=== PATIENT | female | born 1945 | race Caucasian/White ===

== ENCOUNTER 2024-07-26 19:16 | Emergency (ER) | payer MEDICARE, OTHER, SELFPAY ==
[2024-07-26] VITALS (18 sets, daily range): BP systolic 103–152; BP diastolic 61–80
--- NOTE | 2024-07-26 19:46 | ED.GENMED ---
History of Present Illness
General
Chief Complaint: Fall
Source: patient and spouse
Exam Limitations: none
Time Seen by Provider: 07/26/24 19:33
History of Present Illness
History of Present Illness:
Patient slipped and fell earlier today outside of a store. Hit her left posterior ribs against her car then fell to the ground. Mostly complaining of left posterior rib pain. Took ibuprofen 6 PM. Pain is progressed throughout the day. Incident
occurred this morning. Denies head injury denies thinners. Denies nausea or vomiting. Has an abrasion to her left ankle although no ankle pain or difficulty ambulating
Past History
Past History
ED Past Medical History: HTN and Other (Arthritis)
ED Past Surgical History: Gynecological, Orthopedic and Other (Cataracts)
Social History
Tobacco: Non-smoker
Personal:
Living: with family
Review of Systems
Review of Systems
All Other Systems: Not applicable
Respiratory: Reports no symptoms
Cardiac: Denies chest pain or syncope
ABD/GI: Reports no symptoms
Phy Exam
Physical Exam
Physical Exam:
TRAUMA EXAM:
VITAL SIGNS: Vital signs reviewed, cooperative
DISTRESS: No active disease
EYES: Pupils reactive, no orbital trauma
NOSE: No deformity or epistaxis
FACE AND SCALP: No scalp or facial trauma, external canals no blood
NECK: Supple mild left paracervical tenderness
BACK: Pelvis stable and nontender. No spinal tenderness. Linear ecchymosis across the left posterior ribs with tenderness. No crepitus. No open wound.
RESPIRATORY: No distress, breath sounds normal, no anterior chest wall tenderness
CARDIAC: No murmur, pulses equal and strong
ABDOMEN: Soft mild left upper quadrant tenderness. No rebound or guarding no mass or hernia
SKIN: Abrasion to the left ankle
EXTREMITIES: Nontender. No bony tenderness or joint tenderness. Good range of motion of all extremities.
NEUROLOGICAL: Alert, oriented, no motor deficits
PSYCH: Mood affect normal
Course
Orders/Labs/Results
Orders:
Orders
07/26/24 19:42
Cardiac Monitoring- Treatment ONCE
07/26/24 19:43
CT Cervical Spine W/o Iv Contr Urgent
Comment:
Reason For Exam: trauma neck pain
CT Chest/abd/pel W Iv Cont Urgent
Reason For Exam: trauma. lrft post rins/luq
07/26/24 19:44
0.9% Sodium Chloride 500 ml [Nss] 500 ml IV BOLUS
Acetaminophen 1000MG/100Ml [Ofirmev] 1,000 mg in 100 ml IV ONCE
Acetaminophen IV Indication:: ED Narcotic Naive Pt-ONCE
07/26/24 19:51
Tetanus/Diphth/Acelpertussis [Adacel] 0.5 ml IM .ONCE ONE
07/26/24 19:59
Complete Blood Count/With Diff Urgent
Comprehensive Metabolic Panel Urgent
07/26/24 22:36
IV Insert/Care/Rem.- Treatment PRN
07/26/24 22:52
Type+Screen Urgent
07/26/24 23:26
ABO2 Urgent
BBK Wristband Number:
Associate notified that ABO2 has been ordered: [id number]
Date: 07/26/24
Time: 23:00
Black Off Worker ID: [id number]
07/27/24 00:24
0.9% Sodium Chloride 500 ml [Nss] 500 ml IV BOLUS
Abnormal Lab Results
07/26/24
19:59
RBC 4.08 L 10^6/uL
(4.20-5.40)
Hct 36.1 L %
(37.0-47.0)
MPV 11.1 H fL
(7.4-10.4)
Absolute Monos (auto) 0.7 H 10^3/uL
(0.1-0.6)
Lymphocytes % 17.8 L %
(20.5-51.1)
Monocytes % 10.8 H %
(1.7-9.3)
BUN 20 H mg/dl
(7-17)
Glucose 143 H mg/dl
(70-99)
07/26/24 19:59
07/26/24 19:59
Vital Signs
Initial and Last Documented VS:
Initial Vital Signs
Temp Pulse Resp BP Pulse Ox
98.0 F 96 18 122/76 99
07/26/24 19:20 07/26/24 19:20 07/26/24 19:20 07/26/24 19:20 07/26/24 19:20
Last Documented Vital Signs
Temp Pulse Resp BP Pulse Ox
98.0 F 90 20 108/64 97
07/26/24 19:20 07/27/24 00:19 07/27/24 00:19 07/27/24 00:19 07/27/24 00:00
MDM/Problems Addressed
Differential Diagnosis Includes:
Major issue is left posterior rib pain with some left upper quadrant tenderness on exam. CT scans pending. Relatively low clinical sufficient given her stability throughout the day however could theoretically have a contained splenic injury.
Breath sounds are equal. Doubt pneumothorax although CT scan would pick this up. Has some mild left paracervical tenderness. Will CT the cervical spine. Tetanus shot for the ankle.
*Radiology
Radiology exam reviewed: radiology read reviewed (Rib fractures x 4 with moderate hemothorax. Small extravasation at hematoma site. Significant degenerative changes cervical spine)
*Condenser Tube Tender Interpretation
Rate: normal
Interpretation: normal
Heart Rate: 78
Rhythm: sinus
*Critical Care Note
Total Time (30-74mins, 75-104mins- exclusive of procedures): 45
Update Note
Update Note:
2230(approximate)... Rib fracture x 4 hemothorax. Clinically stable. Patient request [facility] trauma service. They accept. Has remained clinically stable.
2245... Stable vital signs. Await transfer at 1130. No need for emergent chest tube at this time
2345... Patient has remained clinically stable with stable vital signs. Still awaiting ambulance which was supposed to be here at 11:30 PM.
ED Attending Note
-
Portions of this chart may have been created with voice recognition software.� Occasional wrong word or��sound alike� substitutions may have occurred due to the inherent limitations of voice recognition software.
Discharge Plan
Departure
Patient Disposition: Acute [facility]
Date of Disposition: 07/26/24
Time of Disposition: 22:47
Discharge Problem:
Rib fracture x 4, Hemothorax
Prescriptions:
No Action
atenolol 25 MG tablet
25 mg PO QPM Qty: 1 0RF
Rx Instructions:
HOLD SYSTOLIC BLOOD PRESSURE <125, HEART RATE <55
famotidine 20 MG tablet
20 mg PO HS Qty: 30 0RF
sennosides [senna] 1 TABLET tablet
2 tab PO BID 0RF
acetaminophen [Tylenol Extra Strength] 500 MG tablet
1,000 mg PO QID 0RF
magnesium hydroxide 30 ML suspension
30 ml PO DAILYPRN PRN (Reason: constipation) 0RF
aspirin 325 MG tablet,delayed release (DR/EC)
325 mg PO DAILY 0RF
Rx Instructions:
with food
ibuprofen [Advil] 200 MG tablet
600 mg PO PRN PRN (Reason: pain) Qty: 0 0RF
Rx Instructions:
with food
do not take within 2h of ASA
Referrals:
Estrella Fagan DO [Family Provider] -
Hospital Transfer
Other hospital: [facility]
I certify that the patient requires transfer: Yes
Discussed case with accepting physician: jonathan
Reason for transfer: higher level of care
Interventions
Interventions:
*Risk Screen - Suicide Last Done: 07/26/24 19:17
*General Assessment Last Done: 07/26/24 19:20
*Neglect/Abuse Screening Last Done: 07/26/24 19:20
ED- Fall Risk Assessment Last Done: 07/26/24 23:12
*ED COVID-19 Vaccine History Last Done: 07/26/24 22:46
ED-Musculoskeletal Assessment Last Done: 07/26/24 23:12
ED- Neurological Assessment Last Done: 07/26/24 23:12
ED-Skin Assessment Last Done: 07/26/24 23:12
Discharge Date and Time
Print Language: SINHALA
[2024-07-26] MEDS: NSS 500 IV (20:11)
[2024-07-26] MEDS: OFIRMEV 100 IV (20:11)
[2024-07-26] MEDS: ADACEL 0.5 ML IM (20:11)
[2024-07-26 20:28] LABS: % Basophils 0.9 % (0-2); % Eosinophils 3.5 % (0-6); % Immature Granulocytes 0.1 % (0-0.5); % Lymphocytes 17.8 % (20.5-51.1); % Monocytes 10.8 % (1.7-9.3); % Neutrophils 66.9 % (42.2-75.2); Absolute Basophils 0.1 10^3/uL (0-0.2); Absolute Eosinophils 0.2 10^3/uL (0-0.7); Absolute Lymphocytes 1.2 10^3/uL (1.2-3.4); Absolute Monocytes 0.7 10^3/uL (0.1-0.6); Absolute Neutrophils 4.5 10^3/uL (1.4-6.5); Hematocrit 36.1 % (37.0-47.0); Hemoglobin 12.4 g/dL (12.0-16.0); Mean Corp Hgb Conc. 34.3 g/dL (33.0-37.0); Mean Corpuscular Hgb 30.4 pg (27.0-31.0); Mean Corpuscular Volume 88.5 fL (81.0-99.0); Mean Platelet Volume 11.1 fL (7.4-10.4); Nucleated Red Blood Cells % 0 %; Platelet Count 191 10^3/uL (130-400); Red Blood Cell Count 4.08 10^6/uL (4.20-5.40); Red Cell Dist. Width 13.4 % (11.5-14.5); White Blood Cell Count 6.8 10^3/uL (4.8-10.8)
[2024-07-26 20:43] LABS: ALT (SGPT) 20 U/L (0-35); AST (SGOT) 33 U/L (14-36); Albumin 4.2 g/dl (3.5-5.0); Alkaline Phosphatase 45 U/L (38-126); Blood Urea Nitrogen 20 mg/dl (7-17); Calcium 9.1 mg/dl (8.4-10.2); Carbon Dioxide 23 mmol/L (22-30); Chloride 102 mmol/L (98-107); Glucose 143 mg/dl (70-99); Potassium 4.4 mmol/L (3.5-5.1); Sodium 140 mmol/L (135-145); Total Bilirubin 0.5 mg/dl (0.2-1.3); eGFR > 60.00
[2024-07-27] VITALS: BP 102/65
[2024-07-27 00:10] VITALS: BP 123/79
[2024-07-27 00:19] VITALS: BP 108/64
[2024-07-27] MEDS: NSS 500 IV (00:25)
== END 2024-07-27 01:01 | disposition short-term general hospital (02) ==
LOC: EMR 19:16
PROVIDERS: EMERGENCY PHYSICIAN Emergency Medicine; FAMILY PHYSICIAN Family Medicine
DX: S27.1XXA Traumatic hemothorax, initial encounter (principal); S22.42XA Multiple fractures of ribs, left side, initial encounter for closed fracture; S90.512A Abrasion, left ankle, initial encounter; W01.0XXA Fall on same level from slipping, tripping and stumbling without subsequent striking against object, initial encounter; Z23 Encounter for immunization
CPT/HCPCS: 99291; 96374; 96361 ×3; 90471; 71260; 72125; 74177; 80053; 85025; 86850; 86900; 86901; 90715; Q9967